=== PATIENT | male | born 1985 | race Caucasian/White ===

== ENCOUNTER 2017-05-23 18:42 | Emergency (ER) | payer BC ==
--- NOTE | 2017-05-23 18:55 | EDM.PDOC ---
ED HPI GENERAL MEDICAL PROBLEM - General Chief Complaint: General Stated Complaint: RIGHT EYELID BUSTED Time Seen by Provider: 05/23/17 18:52 Source of Information: Reports: Patient History Limitations: Reports: No Limitations - History of Present Illness INITIAL COMMENTS - FREE TEXT/NARRATIVE: History of present illness: [31-year-old male comes in status post fall from a 4 foot ladder. Patient was on the top of a ladder and fell off landing on his head splitting his eyebrow denies loss of consciousness or nausea vomiting.] Review of systems: As per history of present illness and below otherwise all systems reviewed and negative. Past medical history: As per history of present illness and as reviewed below otherwise noncontributory. Surgical history: As per history of present illness and as reviewed below otherwise noncontributory. Social history: No reported history of drug or alcohol abuse. Family history: As per history of present illness and as reviewed below otherwise noncontributory. Physical exam: HEENT: Right forehead with a 2 cm laceration right at the eyebrow, pupils reactive, negative for conjunctival pallor or scleral icterus, mucous membranes moist, throat clear, neck supple, nontender, trachea midline. Lungs: Clear to auscultation, breath sounds equal bilaterally, chest nontender. Heart: S1S2, regular, negative for clicks, rubs, or JVD. Abdomen: Soft, nondistended, nontender. Negative for masses or hepatosplenomegaly. Negative for costovertebral tenderness. Pelvis: Stable nontender. Genitourinary: Deferred. Rectal: Deferred. Extremities: Atraumatic, negative for cords or calf pain. Neurovascular unremarkable. Neuro: Awake, alert, oriented. Cranial nerves II through XII unremarkable. Cerebellum unremarkable. Motor and sensory unremarkable throughout. Exam nonfocal. Procedure note: Lidocaine with epi laceration to eyebrow approximately 2 cm long area cleaned well in the usual fashion sterile field established and 4. 0 Prolene 3 interrupted sutures applied to approximate edges. Wound edges approximated well bacitracin applied with a dressing over. Spoke with Dr. Justice at [facility] and she is aware of the patient's need for transfer also spoke to Dr. Li in neurology also [facility] and he accepted the patient Diagnostics: [CT of head without contrast] Therapeutics: [Lidocaine with epi] Impression: [Punctate bleed X2 (frontal and right occipital)] Plan: [Transfer to [facility]] Definitive disposition and diagnosis as appropriate pending reevaluation and review of above. Right Face Pain Score (Numeric/FACES): 1 - Related Data Allergies Allergy/AdvReac Type Severity Reaction Status Date / Time No Known Allergies Allergy Verified 05/23/17 18:53 Home Meds: Home Meds Albuterol [Ventolin HFA] 2 puff INH Q6H PRN 07/09/14 [History] Fluticasone/Salmeterol [Advair 250-50 Diskus] 2 puff IH DAILY 05/23/17 [History] Past Medical History - Past Surgical History HEENT Surgical History: Reports: Tonsillectomy Social & Family History - Family History Family Medical History: Noncontributory - Tobacco Use Smoking Status *Q: Former Smoker Used Tobacco, but Quit: Yes Month Tobacco Last Used: september - Alcohol Use Days Per Week of Alcohol Use: 0 - Recreational Drug Use Recreational Drug Use: No ED ROS GENERAL - Review of Systems Review Of Systems: See Below (See history of present illness) ED EXAM, GENERAL - Physical Exam Exam: See Below (See history of present illness) Course - Vital Signs Last Recorded V/S: Last Vital Signs Temp 36.9 C 05/23/17 18:50 Pulse 64 05/23/17 18:50 Resp 12 05/23/17 18:50 BP 147/85 H 05/23/17 18:50 Pulse Ox 96 05/23/17 18:50 - Orders/Labs/Meds Orders: Active Orders 24 hr Category Date Time Status Head wo Cont [CT] Stat Exams 05/23/17 18:52 Taken Meds: Medications Discontinued Medications Generic Name Dose Route Start Last Admin Trade Name Freq PRN Reason Stop Dose Admin Lidocaine/Epinephrine 20 ml 05/23/17 19:07 05/23/17 20:07 Xylocaine 1% With Epinephrine 1:100,000 INJECT 05/23/17 19:08 20 ml ONETIME ONE Administration Departure - Departure Time of Disposition: 20:47 Disposition: DC/Tfer to Acute Hospital 02 Condition: Good Clinical Impression: Brain bleed - Discharge Information Referrals: Salinas Boone MD [Primary Care Provider] - Forms: ED Department Discharge - My Orders Last 24 Hours: My Active Orders 05/23/17 18:52 Head wo Cont [CT] Stat - Assessment/Plan Last 24 Hours: My Active Orders 05/23/17 18:52 Head wo Cont [CT] Stat
[2017-05-23] MEDS ORDERED: Lidocaine 1% with EPINEPHrine 1:100,000 20 ML MDV INJECT ONE (19:07)
[2017-05-23 22:21] VITALS: BP 162/82
--- NOTE | 2017-05-25 15:12 | CT ---
EXAM DATE: 05/23/17 PATIENT'S AGE: 31 Patient: LISSET STONE Facility: [place], [place] Site . Site : 1985 Study: CT Head WO CONT [id number] 7:38:29 PM Ordering Physician: Doctor Rosario Final Report: INDICATION: Head injury from a fall off a ladder TECHNIQUE: CT head without i.v. contrast. COMPARISON: None FINDINGS: CSF spaces: Within normal limits for age. Brain parenchyma: There is a punctate density within the left frontal lobe sulcus on image 45 and right occipital lobe sulcus on image 49. No sign of mass , hemorrhage, or midline shift seen. Skull base and calvarium: The visualized paranasal sinuses are well aerated. The mastoid air cells are clear. The visualized orbits are grossly unremarkable. No skull fractures are seen. IMPRESSION: 1. There is a punctate density within the left frontal lobe sulcus on image 45 and right occipital lobe sulcus on image 49. Close clinical and imaging follow up is recommended to exclude subtle subarachnoid hemorrhage. The findings were discussed with nurse practitioner, Vladimir Amaya, at 8:00 p.m. Dictated by Christiano Ortega MD @ 05/23/2017 8:00:02 PM Dictated by: Christiano Ortega MD @ 05/23/2017 20:03:08 (Electronic Signature) Report Signed by Proxy. JUDY
== END 2017-05-23 21:27 ==
LOC: MW.ED 18:42
DX: S06.340A Traumatic hemorrhage of right cerebrum without loss of consciousness, initial encounter (principal); S06.350A Traumatic hemorrhage of left cerebrum without loss of consciousness, initial encounter; S01.111A Laceration without foreign body of right eyelid and periocular area, initial encounter; Z79.899 Other long term (current) drug therapy; Z98.890 Other specified postprocedural states; Z87.891 Personal history of nicotine dependence; W11.XXXA Fall on and from ladder, initial encounter
CPT/HCPCS: 12011; 70450; 70450-26; 99283; 99284-25

== ENCOUNTER 2019-05-12 19:42 | Observation (INO) | payer BC, OTHER ==
[2019-05-12] MEDS ORDERED: Sodium Chloride 0.9% 2.5 ML Syringe FLUSH PRN (19:51)
[2019-05-12] MEDS ORDERED: Sodium Chloride 0.9% 1,000 ML IV ONE (19:51)
[2019-05-12] MEDS ORDERED: Sodium Chloride 0.9% 10 ML Syringe FLUSH PRN (19:51)
[2019-05-12] MEDS ORDERED: Diltiazem 25 MG/5 ML SDV IVPUSH ONE (19:52)
[2019-05-12] MEDS ORDERED: Enoxaparin 100 MG/1 ML Syringe SUBCUT ONE (19:52)
--- NOTE | 2019-05-12 19:53 | EDM.PDOC ---
ED HPI GENERAL MEDICAL PROBLEM - General Chief Complaint: Cardiovascular Problem Stated Complaint: CHEST PAINS Time Seen by Provider: 05/12/19 19:53 Source of Information: Reports: Patient History Limitations: Reports: No Limitations - History of Present Illness INITIAL COMMENTS - FREE TEXT/NARRATIVE: HISTORY AND PHYSICAL: History of present illness: Patient is a 33-year-old male presents to the ED with concern of palpitations. He states he was playing softball and began feeling his heart racing about 30 minutes prior to arrival to the ED. He denies any chest pain, shortness of breath, dizziness, nausea, vomiting. He denies significant past medical history. Denies tobacco use. He states he drinks about 1-2 beers per day, had two playing softball today. Review of systems: As per history of present illness and below otherwise all systems reviewed and negative. Past medical history: As per history of present illness and as reviewed below otherwise noncontributory. Surgical history: As per history of present illness and as reviewed below otherwise noncontributory. Social history: No reported history of drug or alcohol abuse. Family history: As per history of present illness and as reviewed below otherwise noncontributory. Physical exam: General: Patient sitting comfortably in no acute distress and nontoxic appearing HEENT: Atraumatic, normocephalic, pupils reactive, negative for conjunctival pallor or scleral icterus, mucous membranes moist, throat clear, neck supple, nontender, trachea midline. No meningeal signs. Lungs: Clear to auscultation, breath sounds equal bilaterally, chest nontender. Heart: S1S2, irregular, tachycardic negative for clicks, rubs, or overt murmur. Abdomen: Soft, nondistended, nontender. Negative for masses or hepatosplenomegaly. Negative for costovertebral tenderness. No rigidity, rebound , guarding. Pelvis: Stable nontender. Genitourinary: Deferred. Rectal: Deferred. Extremities: Atraumatic, negative for cords or calf pain. Neurovascular unremarkable. Neuro: Awake, alert, oriented. Cranial nerves II through XII unremarkable. Cerebellum unremarkable. Motor and sensory unremarkable throughout. Exam nonfocal. Notes: EKG shows atrial fibrillation with RVR Diagnostics: CBC, CMP, troponin, PT/INR, EKG, chest x-ray Therapeutics: 1 L normal saline IV 25 mg Cardizem IV 80 mg Lovenox subcutaneous Prescriptions: Impression: New onset atrial fibrillation Plan: Discussed with Dr. Mccarthy, patient admitted to observation for new onset a-fib Definitive disposition and diagnosis as appropriate pending reevaluation and review of above. no pain Pain Score (Numeric/FACES): 0 - Related Data Allergies Allergy/AdvReac Type Severity Reaction Status Date / Time No Known Allergies Allergy Verified 05/12/19 22:44 Home Meds: Home Meds Albuterol [Ventolin HFA] 2 puff INH Q6H PRN 07/09/14 [History] Fluticasone/Salmeterol [Advair 250-50 Diskus] 2 puff IH DAILY 05/23/17 [History] Pantoprazole Sodium [Protonix] 40 mg PO DAILY 05/12/19 [History] Aspirin [Lo-Dose Aspirin EC] 81 mg PO DAILY 14 Days #14 tablet. 05/13/19 [Rx] Past Medical History Respiratory History: Reports: Asthma Gastrointestinal History: Reports: None Neurological History: Reports: None Psychiatric History: Reports: Anxiety Dermatologic History: Reports: None - Infectious Disease History Infectious Disease History: Reports: Chicken Pox - Past Surgical History HEENT Surgical History: Reports: Tonsillectomy Musculoskeletal Surgical History: Reports: Arthroscopic Knee, Shoulder Surgery, Other (See Below) Other Musculoskeletal Surgeries/Procedures:: Both on Right Social & Family History - Family History Family Medical History: Noncontributory - Tobacco Use Smoking Status *Q: Never Smoker - Caffeine Use Caffeine Use: Reports: Coffee, Energy Drinks, Soda - Recreational Drug Use Recreational Drug Use: No ED ROS GENERAL - Review of Systems Review Of Systems: ROS reveals no pertinent complaints other than HPI. ED EXAM, GENERAL - Physical Exam Exam: See Below (see dictation) Course - Vital Signs Last Recorded V/S: Last Vital Signs Temp 98.0 F 05/13/19 11:46 Pulse 60 05/13/19 11:46 Resp 22 H 05/13/19 11:46 BP 116/59 L 05/13/19 11:46 Pulse Ox 96 05/13/19 11:46 - Orders/Labs/Meds Labs: Laboratory Tests 05/12/19 05/12/19 05/12/19 Range/Units 19:20 19:50 19:50 WBC 10.43 (4.0-11.0) K/uL RBC 5.35 (4.50-5.90) M/uL Hgb 16.3 (13.0-17.0) g/dL Hct 46.8 (38.0-50.0) % MCV 87.5 (80.0-98.0) fL MCH 30.5 (27.0-32.0) pg MCHC 34.8 (31.0-37.0) g/dL RDW Std Deviation 39.2 (28.0-62.0) fl RDW Coeff of Anna 12 (11.0-15.0) % Plt Count 202 (150-400) K/uL MPV 9.80 (7.40-12.00) fL Neut % (Auto) 41.4 L (48.0-80.0) % Lymph % (Auto) 45.1 H (16.0-40.0) % Story % (Auto) 8.4 (0.0-15.0) % Eos % (Auto) 4.9 (0.0-7.0) % Baso % (Auto) 0.2 (0.0-1.5) % Neut # (Auto) 4.3 (1.4-5.7) K/uL Lymph # (Auto) 4.7 H (0.6-2.4) K/uL Story # (Auto) 0.9 H (0.0-0.8) K/uL Eos # (Auto) 0.5 (0.0-0.7) K/uL Baso # (Auto) 0.0 (0.0-0.1) K/uL Nucleated RBC % 0.0 /100WBC Nucleated RBCs # 0 K/uL INR 1.01 Sodium (136-148) mmol/L Potassium (3.5-5.1) mmol/L Chloride (98-107) mmol/L Carbon Dioxide (21.0-32.0) mmol/L BUN (7.0-18.0) mg/dL Creatinine (0.8-1.3) mg/dL Est Cr Clr Drug Dosing mL/min Estimated GFR (MDRD) ml/min Glucose (74-106) mg/dL Calcium (8.5-10.1) mg/dL Magnesium 2.2 (1.8-2.4) mg/dL Total Bilirubin (0.2-1.0) mg/dL AST (15-37) IU/L ALT (14-63) IU/L Alkaline Phosphatase (46-116) U/L Troponin I (0.000-0.056) ng/mL Total Protein (6.4-8.2) g/dL Albumin (3.4-5.0) g/dL Globulin (2.6-4.0) g/dL Albumin/Globulin Ratio (0.9-1.6) TSH 3rd Generation (0.36-3.74) uIU/mL 05/12/19 05/12/19 Range/Units 19:50 19:50 WBC (4.0-11.0) K/uL RBC (4.50-5.90) M/uL Hgb (13.0-17.0) g/dL Hct (38.0-50.0) % MCV (80.0-98.0) fL MCH (27.0-32.0) pg MCHC (31.0-37.0) g/dL RDW Std Deviation (28.0-62.0) fl RDW Coeff of Anna (11.0-15.0) % Plt Count (150-400) K/uL MPV (7.40-12.00) fL Neut % (Auto) (48.0-80.0) % Lymph % (Auto) (16.0-40.0) % Story % (Auto) (0.0-15.0) % Eos % (Auto) (0.0-7.0) % Baso % (Auto) (0.0-1.5) % Neut # (Auto) (1.4-5.7) K/uL Lymph # (Auto) (0.6-2.4) K/uL Story # (Auto) (0.0-0.8) K/uL Eos # (Auto) (0.0-0.7) K/uL Baso # (Auto) (0.0-0.1) K/uL Nucleated RBC % /100WBC Nucleated RBCs # K/uL INR Sodium 136 (136-148) mmol/L Potassium 2.8 L (3.5-5.1) mmol/L Chloride 101 (98-107) mmol/L Carbon Dioxide 25.5 (21.0-32.0) mmol/L BUN 11 (7.0-18.0) mg/dL Creatinine 1.2 (0.8-1.3) mg/dL Est Cr Clr Drug Dosing 87.56 mL/min Estimated GFR (MDRD) > 60.0 ml/min Glucose 102 (74-106) mg/dL Calcium 9.2 (8.5-10.1) mg/dL Magnesium (1.8-2.4) mg/dL Total Bilirubin 0.4 (0.2-1.0) mg/dL AST 16 (15-37) IU/L ALT 40 (14-63) IU/L Alkaline Phosphatase 90 (46-116) U/L Troponin I < 0.050 (0.000-0.056) ng/mL Total Protein 7.4 (6.4-8.2) g/dL Albumin 4.3 (3.4-5.0) g/dL Globulin 3.1 (2.6-4.0) g/dL Albumin/Globulin Ratio 1.4 (0.9-1.6) TSH 3rd Generation 2.86 (0.36-3.74) uIU/mL Meds: Medications Discontinued Medications Generic Name Dose Route Start Last Admin Trade Name Freq PRN Reason Stop Dose Admin Diltiazem HCl 25 mg 05/12/19 19:52 05/12/19 20:04 Diltiazem IVPUSH 05/12/19 19:53 25 mg ONETIME ONE Administration Enoxaparin Sodium 80 mg 05/12/19 19:52 05/12/19 20:04 Lovenox SUBCUT 05/12/19 19:53 80 mg ONETIME ONE Administration Sodium Chloride 1,000 mls @ 999 mls/hr 05/12/19 19:51 05/12/19 20:04 Normal Saline IV 05/12/19 20:51 999 mls/hr BOLUS ONE Administration Potassium Chloride/Sodium Chloride 1,000 mls @ 125 mls/hr 05/13/19 01:45 01:53 Normal Saline With 40 Meq Kcl IV 05/13/19 09:44 125 mls/hr ASDIRECTED ZINA Administration Metoprolol Tartrate 25 mg 05/12/19 20:30 05/13/19 08:21 Lopressor PO 25 mg Q12H ZINA Administration Potassium Chloride 40 meq 05/13/19 01:38 05/13/19 01:53 Klor-Con M20 PO 05/13/19 01:39 40 meq ONETIME ONE Administration Fluticasone/Salmeterol 2 puff 05/13/19 09:00 05/13/19 09:24 Advair Diskus 250-50 INH 1 inhalation DAILY ZINA Administration Sodium Chloride 10 ml 05/12/19 19:51 Saline Flush FLUSH ASDIRECTED PRN Keep Vein Open Sodium Chloride 2.5 ml 05/12/19 19:51 Saline Flush FLUSH ASDIRECTED PRN Keep Vein Open Departure - Departure Time of Disposition: 10:12 Disposition: Refer to Observation Clinical Impression: Atrial fibrillation
--- NOTE | 2019-05-12 20:20 | CR ---
INDICATION: Chest pain TECHNIQUE: Chest radiograph 1 view COMPARISON: None FINDINGS: Mediastinum: The mediastinum is normal in appearance. The heart silhouette is normal in size and morphology. Lung: Both lungs are unremarkable in appearance. No sign of pleural effusion seen. No pneumothorax is identified. IMPRESSION: 1. No acute cardiopulmonary disease is seen. Dictated by: Christiano Ortega MD @ 05/12/2019 20:18:50 (Electronically Signed)
--- NOTE | 2019-05-12 20:36 | PCM.HP.2 ---
H&P History of Present Illness - General Date of Service: 05/12/19 Admit Problem/Dx: Admission Diagnosis/Problem Admission Diagnosis/Problem Atrial fibrillation - History of Present Illness Initial Comments - Free Text/Narative: 33 yo male who presents to the ED with complaints of palpitations. He reports he was running bases at baseball and his heart started pounding and would not stop. He state it lasted for about 30 minutes. He reports he gets palpitions for a few seconds to minutes about once a day. He denies any history of heart disease. He does have a history of asthma and is on advair. He reports using his rescue inhaler 1-2 times a week. In the ED he was noted to be in atrial fibrillation with heart rate in the 150s bpm. He was give diltiazem with improvement of his heart rate into the 90s. no pain Pain Score (Numeric/FACES): 0 - Related Data Allergies/Adverse Reactions: Allergies Allergy/AdvReac Type Severity Reaction Status Date / Time No Known Allergies Allergy Verified 05/12/19 22:44 Home Medications: Home Meds Albuterol [Ventolin HFA] 2 puff INH Q6H PRN 07/09/14 [History] Fluticasone/Salmeterol [Advair 250-50 Diskus] 2 puff IH DAILY 05/23/17 [History] Pantoprazole Sodium [Protonix] 40 mg PO DAILY 05/12/19 [History] Aspirin [Lo-Dose Aspirin EC] 81 mg PO DAILY 14 Days #14 tablet. 05/13/19 [Rx] Past Medical History Respiratory History: Reports: Asthma Gastrointestinal History: Reports: None Neurological History: Reports: None Psychiatric History: Reports: Anxiety Dermatologic History: Reports: None - Infectious Disease History Infectious Disease History: Reports: Chicken Pox - Past Surgical History HEENT Surgical History: Reports: Tonsillectomy Musculoskeletal Surgical History: Reports: Arthroscopic Knee, Shoulder Surgery, Other (See Below) Other Musculoskeletal Surgeries/Procedures:: Both on Right Social & Family History - Family History Family Medical History: Noncontributory - Tobacco Use Smoking Status *Q: Never Smoker - Caffeine Use Caffeine Use: Reports: Coffee, Energy Drinks, Soda - Recreational Drug Use Recreational Drug Use: No H&P Review of Systems - Review of Systems: Review Of Systems: ROS reveals no pertinent complaints other than HPI. Exam - Exam Exam: See Below - Vital Signs Vital Signs: Last Vital Signs Temp 36.7 C 05/12/19 19:46 Pulse 84 05/12/19 20:11 Resp 16 05/12/19 20:11 BP 149/78 H 05/12/19 20:11 Pulse Ox 97 05/12/19 20:11 Weight: 83.915 kg - Exam General: Alert, Oriented HEENT: Mucosa Moist & [place] Lungs: Clear to Auscultation, Normal Respiratory Effort Cardiovascular: Regular Rate, Regular Rhythm GI/Abdominal Exam: Normal Bowel Sounds, Soft, Non-Tender Extremities: Non-Tender, No Pedal Edema - Patient Data Lab Results Last 24 hrs: Laboratory Results - last 24 hr 05/12/19 05/12/19 Range/Units 19:50 19:50 WBC 10.43 (4.0-11.0) K/uL RBC 5.35 (4.50-5.90) M/uL Hgb 16.3 (13.0-17.0) g/dL Hct 46.8 (38.0-50.0) % MCV 87.5 (80.0-98.0) fL MCH 30.5 (27.0-32.0) pg MCHC 34.8 (31.0-37.0) g/dL RDW Std Deviation 39.2 (28.0-62.0) fl RDW Coeff of Anna 12 (11.0-15.0) % Plt Count 202 (150-400) K/uL MPV 9.80 (7.40-12.00) fL Neut % (Auto) 41.4 L (48.0-80.0) % Lymph % (Auto) 45.1 H (16.0-40.0) % Nye % (Auto) 8.4 (0.0-15.0) % Eos % (Auto) 4.9 (0.0-7.0) % Baso % (Auto) 0.2 (0.0-1.5) % Neut # (Auto) 4.3 (1.4-5.7) K/uL Lymph # (Auto) 4.7 H (0.6-2.4) K/uL Nye # (Auto) 0.9 H (0.0-0.8) K/uL Eos # (Auto) 0.5 (0.0-0.7) K/uL Baso # (Auto) 0.0 (0.0-0.1) K/uL Nucleated RBC % 0.0 /100WBC Nucleated RBCs # 0 K/uL INR 1.01 Result Diagrams: 05/12/19 19:50 05/13/19 06:08 Problem List Initiated/Reviewed/Updated: Yes Orders Last 24hrs: Active Orders 24 hr Category Date Time Status Admission Status [Patient Status] [ADT] Stat ADT 05/12/19 20:07 Active Antiembolic Devices [RC] PER UNIT ROUTINE Care 05/12/19 20:31 Ordered Cardiac Monitoring [RC] . DIRECTED Care 05/12/19 19:51 Active EKG Documentation Completion [RC] STAT Care 05/12/19 19:51 Active Oxygen Therapy [RC] PRN Care 05/12/19 20:30 Ordered Up ad Rylee [RC] ASDIRECTED Care 05/12/19 20:30 Ordered VTE/DVT Education [RC] PER UNIT ROUTINE Care 05/12/19 20:30 Ordered Vital Signs [RC] Q4H Care 05/12/19 20:30 Ordered BASIC METABOLIC PANEL,BMP [CHEM] AM Lab 05/13/19 05:11 Ordered COMPREHENSIVE METABOLIC PN,CMP [CHEM] Stat Lab 05/12/19 19:50 Received TROPONIN I [CHEM] Stat Lab 05/12/19 19:50 Received TSH [CHEM] Stat Lab 05/12/19 19:50 Received Fluticasone/Salmeterol [Advair Diskus 250-50] Med 05/13/19 09:00 Ordered 2 puff INH DAILY Metoprolol Tartrate [Lopressor] Med 05/12/19 20:30 Ordered 25 mg PO Q12H Sodium Chloride 0.9% [Normal Saline] 1,000 ml Med 05/12/19 19:51 Active IV BOLUS Sodium Chloride 0.9% [Saline Flush] Med 05/12/19 19:51 Active 10 ml FLUSH ASDIRECTED PRN Sodium Chloride 0.9% [Saline Flush] Med 05/12/19 19:51 Active 2.5 ml FLUSH ASDIRECTED PRN Saline Lock Insert [OM.PC] Stat Oth 05/12/19 19:51 Ordered Sequential Compression Device [OM.PC] Per Unit Routine Oth 05/12/19 20:31 Ordered Resuscitation Status Routine Resus Stat 05/12/19 20:30 Ordered Medication Orders Sodium Chloride (Normal Saline) 1,000 mls @ 999 mls/hr IV BOLUS ONE Stop: 05/12/19 20:51 Last Admin: 05/12/19 20:04 Dose: 999 mls/hr Metoprolol Tartrate (Lopressor) 25 mg PO Q12H ZINA Fluticasone/Salmeterol (Advair Diskus 250-50) 2 puff INH DAILY ZINA Sodium Chloride (Saline Flush) 10 ml FLUSH ASDIRECTED PRN PRN Reason: Keep Vein Open Sodium Chloride (Saline Flush) 2.5 ml FLUSH ASDIRECTED PRN PRN Reason: Keep Vein Open Assessment/Plan Comment:: 33 yo male admitted for newly diagnosed atrial fibrillation with RVR. He is currently rate controlled after IV diltiazem. We will start oral metoprolol and continue to monitor on telemetry.
[2019-05-12 20:55] LABS: CHLORIDE,CL 101 mmol/L (98-107); SODIUM,NA 136 mmol/L (136-148)
[2019-05-12] MEDS: Metoprolol Tartrate 25 MG Tab PO SCH (21:34)
[2019-05-13] MEDS ORDERED: Potassium Chloride 20 MEQ Tab.ER PO ONE (01:38)
[2019-05-13] MEDS ORDERED: Sodium Chloride 0.9% with KCl 1,000 ML IV SCH (01:45)
[2019-05-13 06:38] LABS: CHLORIDE,CL 110 mmol/L (98-107); SODIUM,NA 146 mmol/L (136-148)
[2019-05-13] MEDS: Metoprolol Tartrate 25 MG Tab PO SCH (08:21)
[2019-05-13] MEDS ORDERED: Fluticasone/Salmeterol 250-50 MCG Inhalation Powder 14/Diskus INH SCH (09:00)
--- NOTE | 2019-05-13 11:13 | PCM.DCSUM1 ---
Discharge Summary - Discharge Data Discharge Date: 05/13/19 Discharge Disposition: Home, Self-Care 01 Condition: Stable - Patient Instructions Diet: Heart Healthy Diet (decrease caffeine consumption; no mountain dew ) Driving: May Drive Today Showering/Bathing: January Shower Notify Provider of: Fever, Increased Pain, Swelling and Redness, Drainage, Nausea and/or Vomiting Other/Special Instructions: contact [facility] if symptoms of chest pain , palpitations , or shortness of breath develop - Discharge Plan *PRESCRIPTION DRUG MONITORING PROGRAM REVIEWED*: No *COPY OF PRESCRIPTION DRUG MONITORING REPORT IN PATIENT ANNABELLE: No Prescriptions/Med Rec: Aspirin [Lo-Dose Aspirin EC] 81 mg PO DAILY 14 Days #14 tablet. Home Medications: Home Meds Albuterol [Ventolin HFA] 2 puff INH Q6H PRN 07/09/14 [History] Fluticasone/Salmeterol [Advair 250-50 Diskus] 2 puff IH DAILY 05/23/17 [History] Pantoprazole Sodium [Protonix] 40 mg PO DAILY 05/12/19 [History] Aspirin [Lo-Dose Aspirin EC] 81 mg PO DAILY 14 Days #14 tablet. 05/13/19 [Rx] Patient Handouts: Aspirin, ASA oral tablets, Atrial Fibrillation, [id number] Referrals: [facility] [Outside] [facility] [Outside] Brady Tang MD [Physician] - 05/26/19 6:30 am Zi Collins MD [Primary Care Provider] - 05/19/19 8:00 am - Discharge Summary/Plan Comment DC Time >30 min.: No - General Info Date of Service: 05/13/19 Subjective Update: Discharge summary Admission date May 12, 2019 Discharge date May 13, 2019 Admission diagnoses: A. fib with RVR Discharge diagnoses: A. fib with RVR: Resolved Consultations: None Procedures: None Hospital course: Patient is a 33-year-old male with a past medical history of asthma presenting to the emergency department with increasing heart rate with palpitations; says he was playing baseball and afterwards could not feel any resolution of his racing heart. States having multiple episodes with similar circumstances in the past; spontaneous resolution. this time could not get his heart rate under control proceeded to emergency department. Patient was playing baseball, had work in the a.m.; and drank a couple of beers in the evening. Otherwise states he has a past medical history of asthma and uses his controlled medication daily and albuterol once or twice a week. Diagnosed with A. fib and RVR; started on IV diltiazem; rate controlled. Switch over to PO metoprolol. Patient already controlled following morning; ultimately decided for no rate control medication; advised to follow cardiology and outpatient echocardiogram within a week. Advised to continue aspirin 81 mg daily and notify provider of any new symptoms or repeat up palpitations; advised to follow with PCP 1 week; Discharge condition: Stable Disposition: Home Discharge medications: Albuterol aspirin 81 mg daily Discharge instructions: Notify provider of new symptoms including fever, chills, bodyaches, chest pain, shortness of breath, palpitations, sweating and any other new symptoms against baseline. Advised to reduce physical exertion until cleared by cardiology. Follow-up: PCP 1 week. Cardiology 1 week. Repeat echo-scheduled - Patient Data Vitals - Most Recent: Last Vital Signs Temp 98.4 F 05/13/19 08:00 Pulse 67 05/13/19 08:21 Resp 16 05/13/19 08:00 BP 128/76 05/13/19 08:21 Pulse Ox 96 05/13/19 08:00 Weight - Most Recent: 189 lb 1.6 oz I&O - Last 24 hours: Intake & Output 05/12/19 05/13/19 05/13/19 22:59 06:59 14:59 Intake Total 1700 Output Total 1300 Balance 400 Lab Results - Last 24 hrs: Laboratory Results - last 24 hr 05/12/19 05/12/19 05/12/19 Range/Units 19:20 19:50 19:50 WBC 10.43 (4.0-11.0) K/uL RBC 5.35 (4.50-5.90) M/uL Hgb 16.3 (13.0-17.0) g/dL Hct 46.8 (38.0-50.0) % MCV 87.5 (80.0-98.0) fL MCH 30.5 (27.0-32.0) pg MCHC 34.8 (31.0-37.0) g/dL RDW Std Deviation 39.2 (28.0-62.0) fl RDW Coeff of Anna 12 (11.0-15.0) % Plt Count 202 (150-400) K/uL MPV 9.80 (7.40-12.00) fL Neut % (Auto) 41.4 L (48.0-80.0) % Lymph % (Auto) 45.1 H (16.0-40.0) % [place] % (Auto) 8.4 (0.0-15.0) % Eos % (Auto) 4.9 (0.0-7.0) % Baso % (Auto) 0.2 (0.0-1.5) % Neut # (Auto) 4.3 (1.4-5.7) K/uL Lymph # (Auto) 4.7 H (0.6-2.4) K/uL [place] # (Auto) 0.9 H (0.0-0.8) K/uL Eos # (Auto) 0.5 (0.0-0.7) K/uL Baso # (Auto) 0.0 (0.0-0.1) K/uL Nucleated RBC % 0.0 /100WBC Nucleated RBCs # 0 K/uL INR 1.01 Sodium (136-148) mmol/L Potassium (3.5-5.1) mmol/L Chloride (98-107) mmol/L Carbon Dioxide (21.0-32.0) mmol/L BUN (7.0-18.0) mg/dL Creatinine (0.8-1.3) mg/dL Est Cr Clr Drug Dosing mL/min Estimated GFR (MDRD) ml/min Glucose (74-106) mg/dL Calcium (8.5-10.1) mg/dL Magnesium 2.2 (1.8-2.4) mg/dL Total Bilirubin (0.2-1.0) mg/dL AST (15-37) IU/L ALT (14-63) IU/L Alkaline Phosphatase (46-116) U/L Troponin I (0.000-0.056) ng/mL Total Protein (6.4-8.2) g/dL Albumin (3.4-5.0) g/dL Globulin (2.6-4.0) g/dL Albumin/Globulin Ratio (0.9-1.6) TSH 3rd Generation (0.36-3.74) uIU/mL 05/12/19 05/12/19 05/13/19 Range/Units 19:50 19:50 06:08 WBC (4.0-11.0) K/uL RBC (4.50-5.90) M/uL Hgb (13.0-17.0) g/dL Hct (38.0-50.0) % MCV (80.0-98.0) fL MCH (27.0-32.0) pg MCHC (31.0-37.0) g/dL RDW Std Deviation (28.0-62.0) fl RDW Coeff of Anna (11.0-15.0) % Plt Count (150-400) K/uL MPV (7.40-12.00) fL Neut % (Auto) (48.0-80.0) % Lymph % (Auto) (16.0-40.0) % [place] % (Auto) (0.0-15.0) % Eos % (Auto) (0.0-7.0) % Baso % (Auto) (0.0-1.5) % Neut # (Auto) (1.4-5.7) K/uL Lymph # (Auto) (0.6-2.4) K/uL [place] # (Auto) (0.0-0.8) K/uL Eos # (Auto) (0.0-0.7) K/uL Baso # (Auto) (0.0-0.1) K/uL Nucleated RBC % /100WBC Nucleated RBCs # K/uL INR Sodium 136 146 (136-148) mmol/L Potassium 2.8 L 4.6 (3.5-5.1) mmol/L Chloride 101 110 H (98-107) mmol/L Carbon Dioxide 25.5 29.4 (21.0-32.0) mmol/L BUN 11 8 (7.0-18.0) mg/dL Creatinine 1.2 1.1 (0.8-1.3) mg/dL Est Cr Clr Drug Dosing 87.56 95.52 mL/min Estimated GFR (MDRD) > 60.0 > 60.0 ml/min Glucose 102 98 (74-106) mg/dL Calcium 9.2 8.7 (8.5-10.1) mg/dL Magnesium (1.8-2.4) mg/dL Total Bilirubin 0.4 (0.2-1.0) mg/dL AST 16 (15-37) IU/L ALT 40 (14-63) IU/L Alkaline Phosphatase 90 (46-116) U/L Troponin I < 0.050 (0.000-0.056) ng/mL Total Protein 7.4 (6.4-8.2) g/dL Albumin 4.3 (3.4-5.0) g/dL Globulin 3.1 (2.6-4.0) g/dL Albumin/Globulin Ratio 1.4 (0.9-1.6) TSH 3rd Generation 2.86 (0.36-3.74) uIU/mL Med Orders - Current: Current Medications Metoprolol Tartrate (Lopressor) 25 mg PO Q12H [facility] Last Admin: 05/13/19 08:21 Dose: 25 mg Fluticasone/Salmeterol (Advair Diskus 250-50) 2 puff INH DAILY [facility] Last Admin: 05/13/19 09:24 Dose: 1 inhalation Sodium Chloride (Saline Flush) 10 ml FLUSH ASDIRECTED PRN PRN Reason: Keep Vein Open Sodium Chloride (Saline Flush) 2.5 ml FLUSH ASDIRECTED PRN PRN Reason: Keep Vein Open Discontinued Medications Diltiazem HCl (Diltiazem) 25 mg IVPUSH ONETIME ONE Stop: 05/12/19 19:53 Last Admin: 05/12/19 20:04 Dose: 25 mg Enoxaparin Sodium (Lovenox) 80 mg SUBCUT ONETIME ONE Stop: 05/12/19 19:53 Last Admin: 05/12/19 20:04 Dose: 80 mg Sodium Chloride (Normal Saline) 1,000 mls @ 999 mls/hr IV BOLUS ONE Stop: 05/12/19 20:51 Last Admin: 05/12/19 20:04 Dose: 999 mls/hr Potassium Chloride/Sodium Chloride (Normal Saline With 40 Meq Kcl) 1,000 mls @ 125 mls/hr IV ASDIRECTED ZINA Stop: 05/13/19 09:44 Last Admin: 05/13/19 01:53 Dose: 125 mls/hr Potassium Chloride (Klor-Con M20) 40 meq PO ONETIME ONE Stop: 05/13/19 01:39 Last Admin: 05/13/19 01:53 Dose: 40 meq
[2019-05-13 11:47] VITALS: BP 116/59
== END 2019-05-13 12:05 | disposition home or self-care (01) ==
LOC: MW.ED 19:42 → MW.MS 20:07
PROVIDERS: ADMIT Internal Medicine; ATTEND Internal Medicine
DX: I48.91 Unspecified atrial fibrillation (principal); J45.909 Unspecified asthma, uncomplicated; Z79.51 Long term (current) use of inhaled steroids
CPT/HCPCS: 36415; 71045; 80048; 80053; 83735; 84443; 84484; 85025; 85610; 93005; 94664; 96361; 96372; 96374; 99285; A9270; J1650; J3480; J3490; J7040; 96365; 96366; 96375; G0378

== ENCOUNTER 2019-05-22 07:11 | Emergency (ER) | payer OTHER ==
[2019-05-22] MEDS ORDERED: Albuterol/Ipratropium 3.0-0.5 MG/3 ML Neb Soln NEB ONE (07:19)
[2019-05-22] MEDS ORDERED: predniSONE 20 MG Tab PO ONE (07:39)
--- NOTE | 2019-05-22 07:44 | EDM.PDOC ---
ED HPI GENERAL MEDICAL PROBLEM - General Chief Complaint: Respiratory Problem Stated Complaint: SOB Time Seen by Provider: 05/22/19 07:30 Source of Information: Reports: Patient History Limitations: Reports: No Limitations - History of Present Illness INITIAL COMMENTS - FREE TEXT/NARRATIVE: History of present illness: []Patient has had 2 days of shortness of breath and wheezing. He has a history of asthma and uses albuterol as well as Advair daily. Yesterday morning he awoke with a severe sore throat that "felt like strep" but his pain rapidly went away and he denies any fevers or chills. He has not been coughing or having any difficulty swallowing. Review of systems: As per history of present illness and below otherwise all systems reviewed and negative. Past medical history: As per history of present illness and as reviewed below otherwise noncontributory. Surgical history: As per history of present illness and as reviewed below otherwise noncontributory. Social history: No reported history of drug or alcohol abuse. Family history: As per history of present illness and as reviewed below otherwise noncontributory. Physical exam: General: Well developed, well nourished in NAD HEENT: Atraumatic, normocephalic, pupils reactive, negative for conjunctival pallor or scleral icterus, mucous membranes moist, throat clear, neck supple, nontender, trachea midline. Lungs: Clear to auscultation, breath sounds equal bilaterally, chest nontender. Heart: S1S2, regular, negative for clicks, rubs, or JVD. Abdomen: NABS, Soft, nondistended, nontender. Negative for masses or hepatosplenomegaly. Negative for costovertebral tenderness. Pelvis: Stable nontender. Genitourinary: Deferred. Rectal: Deferred. Extremities: Atraumatic, negative for cords or calf pain. Neurovascular unremarkable. Neuro: Awake, alert, oriented. Cranial nerves II through XII unremarkable. Cerebellum unremarkable. Motor and sensory unremarkable throughout. Exam nonfocal. Skin:warm and dry Diagnostics: EKG, Therapeutics: DuoNeb prednisone ED Course: Stable Impression: Mild asthma exacerbation Prescriptions: Prednisone Plan: Take meds as directed, follow up with your primary care physician, return to ER if symptoms worsen or change. Definitive disposition and diagnosis as appropriate pending reevaluation and review of above. - Related Data Allergies Allergy/AdvReac Type Severity Reaction Status Date / Time No Known Allergies Allergy Verified 05/22/19 07:14 Home Meds: Home Meds Albuterol [Ventolin HFA] 2 puff INH Q6H PRN 07/09/14 [History] Aspirin [Lo-Dose Aspirin EC] 81 mg PO DAILY 14 Days #14 tablet. 05/13/19 [Rx] predniSONE [Prednisone] 20 mg PO DAILY #5 tablet 05/22/19 [Rx] Past Medical History HEENT History: Reports: Impaired Vision, Other (See Below) Other HEENT History: wears contacts Cardiovascular History: Reports: Afib Respiratory History: Reports: Asthma Gastrointestinal History: Reports: None Neurological History: Reports: None Psychiatric History: Reports: Anxiety Dermatologic History: Reports: None - Infectious Disease History Infectious Disease History: Reports: Chicken Pox - Past Surgical History HEENT Surgical History: Reports: Tonsillectomy Musculoskeletal Surgical History: Reports: Arthroscopic Knee, Shoulder Surgery, Other (See Below) Other Musculoskeletal Surgeries/Procedures:: Both on Right Social & Family History - Family History Family Medical History: Noncontributory Cardiac: Reports: Hypertension Endocrine/Metabolic: Reports: Diabetes, Type I - Tobacco Use Smoking Status *Q: Never Smoker - Caffeine Use Caffeine Use: Reports: Coffee - Recreational Drug Use Recreational Drug Use: No ED ROS GENERAL - Review of Systems Review Of Systems: See Below ED EXAM, GENERAL - Physical Exam Exam: See Below Course - Vital Signs Last Recorded V/S: Last Vital Signs Temp 96.1 F 05/22/19 07:15 Pulse 92 05/22/19 07:15 Resp 24 H 05/22/19 07:15 BP 155/82 H 05/22/19 07:15 Pulse Ox 98 05/22/19 07:15 - Orders/Labs/Meds Orders: Active Orders 24 hr Category Date Time Status EKG 12 Lead [EKG Documentation Completion] [RC] STAT Care 05/22/19 07:36 Active RT Aerosol Therapy [RC] ASDIRECTED Care 05/22/19 07:19 Active Meds: Medications Discontinued Medications Generic Name Dose Route Start Last Admin Trade Name Freq PRN Reason Stop Dose Admin Albuterol/Ipratropium 3 ml 05/22/19 07:19 05/22/19 07:25 Duoneb 3.0-0.5 Mg/3 Ml NEB 09/08/19 07:20 3 ml ONETIME ONE Administration Prednisone 60 mg 05/22/19 07:39 Prednisone PO 05/22/19 07:40 ONETIME ONE Departure - Departure Time of Disposition: 07:43 Disposition: Home, Self-Care 01 Condition: Good Clinical Impression: Mild asthma exacerbation - Discharge Information *PRESCRIPTION DRUG MONITORING PROGRAM REVIEWED*: No *COPY OF PRESCRIPTION DRUG MONITORING REPORT IN PATIENT ANNABELLE: No Prescriptions: predniSONE [Prednisone] 20 mg PO DAILY #5 tablet Forms: ED Department Discharge Additional Instructions: The following information is given to patients seen in the emergency department who are being discharged to home. This information is to outline your options for follow-up care. We provide all patients seen in our emergency department with a follow-up referral. The need for follow-up, as well as the timing and circumstances, are variable depending upon the specifics of your emergency department visit. If you don't have a primary care physician on staff, we will provide you with a referral. We always advise you to contact your personal physician following an emergency department visit to inform them of the circumstance of the visit and for follow-up with them and/or the need for any referrals to a consulting specialist. The emergency department will also refer you to a specialist when appropriate. This referral assures that you have the opportunity for follow-up care with a specialist. All of these measure are taken in an effort to provide you with optimal care, which includes your follow-up. Under all circumstances we always encourage you to contact your private physician who remains a resource for coordinating your care. When calling for follow-up care, please make the office aware that this follow-up is from your recent emergency room visit. If for any reason you are refused follow-up, please contact the Emergency Department at and asked to speak to the emergency department charge nurse. Take meds as directed, follow up with your primary care physician, return to ER if symptoms worsen or change. Primary Care [address] [place] [id number] - My Orders Last 24 Hours: My Active Orders 05/22/19 07:19 RT Aerosol Therapy [RC] ASDIRECTED 05/22/19 07:36 EKG 12 Lead [EKG Documentation Completion] [RC] STAT - Assessment/Plan Last 24 Hours: My Active Orders 05/22/19 07:19 RT Aerosol Therapy [RC] ASDIRECTED 05/22/19 07:36 EKG 12 Lead [EKG Documentation Completion] [RC] STAT
[2019-05-22 07:50] VITALS: BP 130/72
== END 2019-05-22 07:56 | disposition home or self-care (01) ==
LOC: MW.ED 07:11
DX: J45.901 Unspecified asthma with (acute) exacerbation (principal); I48.91 Unspecified atrial fibrillation; Z79.82 Long term (current) use of aspirin; Z79.899 Other long term (current) drug therapy
CPT/HCPCS: 93005; 94640; 99284; A9270; J7620-GY

== ENCOUNTER 2020-11-13 08:32 | Emergency (ER) | payer BC ==
--- NOTE | 2020-11-13 09:05 | EDM.PDOC ---
ED HPI GENERAL MEDICAL PROBLEM - General Chief Complaint: Cardiovascular Problem Stated Complaint: JAW PAIN, FAST HEART BEAT Time Seen by Provider: 11/13/20 08:41 - History of Present Illness INITIAL COMMENTS - FREE TEXT/NARRATIVE: Patient is a 35-year-old male presenting with palpitations. Patient has a history of an episode of A. fib that occurred while he was playing softball. He subsequently followed up with a geometry teacher at [facility]. He did a 2- day Holter and then a month-long Holter. He had no arrhythmia episodes during that but did have some frequent symptomatic PACs and PVCs. That initial geometry teacher essentially released him saying he did not need to take any medications or do anything further because of his negative Holter. But he was offered a second opinion with the cloth cutter. He saw the nurse practitioner who works in the cloth cutter office. They discussed the symptomatic PACs and PVCs and he was placed on a once daily low-dose diltiazem which he started 5 days ago. Since that time he has been troubled by palpitations at night as he is trying to sleep after taking the diltiazem. He denies any separate chest pain he denies any lightheadedness dizziness syncope or near syncope he denies any shortness of breath. No lower extremity pain or swelling. The symptoms do not occur with exertion. 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 Since being on the diltiazem he feels like there might be one coming on but that it is then suppressed. He is a non-smoker he has no family history of cardiac disease. He has no other medical problems and takes no other medications. - Related Data Allergies Allergy/AdvReac Type Severity Reaction Status Date / Time No Known Allergies Allergy Verified 11/13/20 08:40 Home Meds: Home Meds Albuterol [Ventolin HFA] 2 puff INH Q6H PRN 07/09/14 [History] Diltiazem [Cardizem] 120 mg PO DAILY 11/13/20 [History] Past Medical History HEENT History: Reports: Impaired Vision, Other (See Below) Other HEENT History: wears contacts Cardiovascular History: Reports: Afib Respiratory History: Reports: Asthma Gastrointestinal History: Reports: None Neurological History: Reports: None Psychiatric History: Reports: Anxiety Dermatologic History: Reports: None - Infectious Disease History Infectious Disease History: Reports: Chicken Pox - Past Surgical History HEENT Surgical History: Reports: Tonsillectomy Musculoskeletal Surgical History: Reports: Arthroscopic Knee, Shoulder Surgery, Other (See Below) Other Musculoskeletal Surgeries/Procedures:: Both on Right Social & Family History - Family History Family Medical History: No Pertinent Family History Cardiac: Reports: Hypertension Endocrine/Metabolic: Reports: Diabetes, Type I - Tobacco Use Tobacco Use Status *Q: Never Tobacco User - Caffeine Use Caffeine Use: Reports: Coffee - Recreational Drug Use Recreational Drug Use: No ED ROS GENERAL - Review of Systems Review Of Systems: See Below Free Text/Narrative/Comment: General: No fever. Eyes: No vision problems. ENT: No sore throat. Neck: No neck stiffness. Respiratory: No shortness of breath. Cardiac: No chest pain. Gastrointestinal: No nausea, vomiting or abdominal pain. Musculoskeletal: No myalgias/arthralgias. Neurologic: No headache. ED EXAM, GENERAL - Physical Exam Exam: See Below Free Text/Narrative:: General Appearance: No acute distress, appears comfortable Skin: No rash HEENT: Normocephalic/atraumatic, sclera anicteric, mucous membranes moist Neck: Normal range of motion Chest and Lungs: Bilateral breath sounds, clear to auscultation Cardiovascular: Regular rate and rhythm, no murmur Abdomen: Soft, non-tender Back: Normal Musculoskeletal: No edema or tenderness Neurologic: Awake, alert, no obvious deficits, moving all extremities Psychiatric: Appropriate, cooperative #1 Interpretation EKG Date: 11/13/20 Time: 08:45 EKG Interpretation Comments: Normal sinus rhythm with a rate of 63 normal axis and intervals no acute ischemia QTC 395 Course - Vital Signs Last Recorded V/S: Last Vital Signs Temp 98.3 F 11/13/20 08:40 Pulse 87 11/13/20 08:40 Resp 16 11/13/20 08:40 BP 145/93 H 11/13/20 08:40 Pulse Ox 96 11/13/20 08:40 - Orders/Labs/Meds Orders: Active Orders 24 hr Category Date Time Status EKG 12 Lead [EKG Documentation Completion] [RC] STAT Care 11/13/20 08:45 Active Chest 2V [CR] Stat Exams 11/13/20 08:58 Taken Labs: Laboratory Tests 11/13/20 11/13/20 Range/Units 09:01 09:01 WBC 5.01 (4.0-11.0) K/uL RBC 5.27 (4.50-5.90) M/uL Hgb 15.7 (13.0-17.0) g/dL Hct 46.4 (38.0-50.0) % MCV 88.0 (80.0-98.0) fL MCH 29.8 (27.0-32.0) pg MCHC 33.8 (31.0-37.0) g/dL RDW Std Deviation 39.2 (28.0-62.0) fl RDW Coeff of Anna 12 (11.0-15.0) % Plt Count 197 (150-400) K/uL MPV 10.10 (7.40-12.00) fL Neut % (Auto) 46.9 L (48.0-80.0) % Lymph % (Auto) 39.7 (16.0-40.0) % [place] % (Auto) 9.8 (0.0-15.0) % Eos % (Auto) 3.4 (0.0-7.0) % Baso % (Auto) 0.2 (0.0-1.5) % Neut # (Auto) 2.4 (1.4-5.7) K/uL Lymph # (Auto) 2.0 (0.6-2.4) K/uL Dim[place] # (Auto) 0.5 (0.0-0.8) K/uL Eos # (Auto) 0.2 (0.0-0.7) K/uL Baso # (Auto) 0.0 (0.0-0.1) K/uL Nucleated RBC % 0.0 /100WBC Nucleated RBCs # 0 K/uL Sodium 139 (136-148) mmol/L Potassium 3.8 (3.5-5.1) mmol/L Chloride 104 (98-107) mmol/L Carbon Dioxide 28.6 (21.0-32.0) mmol/L BUN 11 (7.0-18.0) mg/dL Creatinine 1.1 (0.8-1.3) mg/dL Est Cr Clr Drug Dosing 93.73 mL/min Estimated GFR (MDRD) > 60.0 ml/min Glucose 99 (74-106) mg/dL Calcium 8.6 (8.5-10.1) mg/dL Magnesium 2.1 (1.8-2.4) mg/dL Troponin I < 0.050 (0.000-0.056) ng/mL Departure - Departure Time of Disposition: 09:44 Disposition: Home, Self-Care 01 Condition: Good Clinical Impression: Palpitations Instructions: Palpitations Referrals: Zi Collins MD [Primary Care Provider] - 1 Week Forms: ED Department Discharge Additional Instructions: I do think your palpitations are at least in part due to the diltiazem. Your labs today were good and your EKG showed a normal sinus rhythm without any significant abnormalities. As we discussed you can try taking the diltiazem in the morning instead of the evening. You may notice trouble with palpitations less if you are active. If you do this it is important you not take more than 1 dose of the medication within a 24-hour period. So if you would like to move your medication dose do not take the medication this evening and take it next tomorrow morning. I encourage you to pay attention to how you feel over the next several days. Please follow-up with your primary care doctor to discuss whether or not to remain on this medication or simply stop it if the side effects are proving to be more bothersome than the original symptoms. The following information is given to patients seen in the emergency department who are being discharged to home. This information is to outline your options for follow-up care. We provide all patients seen in our emergency department with a follow-up referral. The need for follow-up, as well as the timing and circumstances, are variable depending upon the specifics of your emergency department visit. If you don't have a primary care physician on staff, we will provide you with a referral. We always advise you to contact your personal physician following an emergency department visit to inform them of the circumstance of the visit and for follow-up with them and/or the need for any referrals to a consulting specialist. The emergency department will also refer you to a specialist when appropriate. This referral assures that you have the opportunity for follow-up care with a specialist. All of these measure are taken in an effort to provide you with optimal care, which includes your follow-up. Under all circumstances we always encourage you to contact your private physician who remains a resource for coordinating your care. When calling for follow-up care, please make the office aware that this follow-up is from your recent emergency room visit. If for any reason you are refused follow-up, please contact the [facility] Emergency Department at and asked to speak to the emergency department charge nurse. Sepsis Event Note (ED) - Evaluation Sepsis Screening Result: No Definite Risk - Focused Exam Vital Signs: Vital Signs Temp Pulse Resp BP Pulse Ox 11/13/20 08:40 98.3 F 87 16 145/93 H 96 - My Orders Last 24 Hours: My Active Orders 11/13/20 08:45 EKG 12 Lead [EKG Documentation Completion] [RC] STAT 11/13/20 08:58 Chest 2V [CR] Stat - Assessment/Plan Last 24 Hours: My Active Orders 11/13/20 08:45 EKG 12 Lead [EKG Documentation Completion] [RC] STAT 11/13/20 08:58 Chest 2V [CR] Stat Assessment:: 35-year-old male presenting with palpitations as described. His EKG is good. He is quite low risk for ACS single troponin will be sent but as long as this is negative I do not think additional evaluation is needed for that. He does not have chest pain only palpitations. He has no other risk factors for heart disease. Given the lack of tachycardia and lack of hypoxia and lack of chest pain or shortness of breath PE is felt very unlikely aortic dissection felt very unlikely nothing that would suggest pericarditis on his EKG. No findings that would suggest pneumonia on his exam. I do think his palpitations are likely due to the diltiazem. We discussed that in light of the negative Holter monitor the diltiazem is really about symptomatic management of his PACs and PVCs. And so it is a balancing game in terms of benefit and side effects. We discussed trying the diltiazem in the morning rather than at night as he may notice the palpitations less during activity. We discussed that he cannot take more than 1 dose in a 24-hour period so if he wanted to do that he should not take it tonight and then take it in the morning tomorrow. We also discussed following up with his primary care doctor. Given the palpitations electrolytes and chest x-ray pending as well as CBC to screen for anemia. If these are unremarkable patient will be safe for discharge with follow-up. 0944: Pt's labs are good, electrolytes and trop are normal. CXR without acute process per my preliminary interpretation. Pt's VS remain good. Pt discharged with f/u. Return precautions discussed and understood.
[2020-11-13 09:38] LABS: BLOOD UREA NITROGEN,BUN 11 mg/dL (7.0-18.0); CARBON DIOXIDE,CO2 28.6 mmol/L (21.0-32.0); CHLORIDE,CL 104 mmol/L (98-107); GLUCOSE RANDOM 99 mg/dL (74-106); POTASSIUM,K 3.8 mmol/L (3.5-5.1); SODIUM,NA 139 mmol/L (136-148)
--- NOTE | 2020-11-13 09:49 | CR ---
INDICATION: Palpitations. TECHNIQUE: Chest 2 views. COMPARISON: Chest radiograph 05/12/2019. FINDINGS: No focal consolidation, pleural effusion, or pneumothorax. Normal heart size and pulmonary vascularity. The bones are unremarkable. IMPRESSION: No acute cardiopulmonary findings. Dictated by Ceci Pineda MD @ Nov 13 2020 9:47AM Signed by Dr. Ceci Pineda @ Nov 13 2020 9:49AM
[2020-11-13 09:51] VITALS: BP 122/69; PULSE 57
== END 2020-11-13 09:52 | disposition home or self-care (01) ==
LOC: MW.ED 08:32
DX: R00.2 Palpitations (principal); J45.909 Unspecified asthma, uncomplicated; I48.91 Unspecified atrial fibrillation; Z79.899 Other long term (current) drug therapy
CPT/HCPCS: 36415; 71046; 71046-26; 80048; 83735; 84484; 85025; 93005; 93010; 99284; 99285-25

== ENCOUNTER 2021-03-13 19:24 | Emergency (ER) | payer BC ==
[2021-03-13] MEDS ORDERED: Aspirin 81 MG Tab.Chew PO ONE (19:59)
--- NOTE | 2021-03-13 20:02 | PCM.EKG ---
#1 Interpretation EKG Date: 03/13/21 Time: 19:38 Rhythm: NSR Rate (Beats/Min): 83 Korbel: Normal P-Wave: Present QRS: Normal ST-T: Normal (T wave inversion lead III, S1, mild q in III) QT: Normal Comparison: Change From Previous EKG EKG Interpretation Comments: Sinus Rhythm with [id number]
--- NOTE | 2021-03-13 20:30 | CR ---
INDICATION: Chest pain. TECHNIQUE: Chest 1 view. COMPARISON: Chest radiograph 11/13/2020. FINDINGS: No focal consolidation, pleural effusion, or pneumothorax. Normal heart size and pulmonary vascularity. The bones are unremarkable. IMPRESSION: No acute cardiopulmonary findings. Dictated by Ceci Pineda MD @ 03/13/2021 8:29:[address] Ceci Pineda @ Mar 13 2021 8:29PM
[2021-03-13 20:40] LABS: BLOOD UREA NITROGEN,BUN 15 mg/dL (7.0-18.0); CARBON DIOXIDE,CO2 28.2 mmol/L (21.0-32.0); CHLORIDE,CL 104 mmol/L (98-107); GLUCOSE RANDOM 99 mg/dL (74-106); POTASSIUM,K 3.5 mmol/L (3.5-5.1); SODIUM,NA 143 mmol/L (136-148)
--- NOTE | 2021-03-13 21:07 | EDM.PDOC ---
ED HPI GENERAL MEDICAL PROBLEM - General Chief Complaint: Chest Pain Stated Complaint: CHEST PAIN Time Seen by Provider: 03/13/21 19:32 - History of Present Illness INITIAL COMMENTS - FREE TEXT/NARRATIVE: CHIEF COMPLAINT(S): Chest pain HISTORY OF PRESENT ILLNESS: This is a 35-year-old man with a past medical history of paroxysmal atrial fibrillation, asthma who comes to the emergency department with a chief complaint of chest pain. The patient states that approximately 3 to 4 hours prior to arrival he started to experience chest pain on the left side of his chest which he describes as cramping/aching pain rated 2 out of 10. He states that the pain is worse with movement when he turns his neck when he bends over. He states that he has been evaluated in [place] for irregular heartbeats and was put on Cardizem. He has not yet taken that medication in a few days. He does have a history of anxiety. He states that he visited a chiropractor and had readjustment for this pain in his left upper chest. He states that it did help however it returned today. He has not yet tried any pain medication. He denies any shortness of breath, lower extreme edema, recent surgery, recent travel, prior history of DVT or PE. He denies any family history of early onset CAD or CHF. He denies any family history of sudden onset at young age. REVIEW OF SYSTEMS: Constitutional: Denies fever, chills. Eyes: Denies eye pain Ears, Nose, Mouth, & Throat: Denies earache Cardiovascular: Positive for left-sided chest pain. Denies lower extremity edema Respiratory: Denies shortness of breath Gastrointestinal: Denies Nausea, vomiting, diarrhea, hematochezia. Genitourinary: Denies hematuria Skin:Denies a rash MSK: Denies joint pain Neurological: Denies blurred vision, numbness, tingling, weakness Psychiatric: Denies depression PAST MEDICAL HISTORY: As per history of present illness and as reviewed below otherwise noncontributory. SURGICAL HISTORY: As per history of present illness and as reviewed below otherw ise noncontributory. SOCIAL HISTORY: As per history of present illness and as reviewed below otherwise noncontributory. FAMILY HISTORY: As per history of present illness and as reviewed below otherw ise noncontributory. EXAMINATION OF ORGAN SYSTEMS/BODY AREAS: Constitutional: Blood pressure is 139/70, heart rate 84, respiratory rate 19 with an oxygen saturation of 99% on room air General: Anxious appearing young man otherwise in no acute distress Psychiatric: Anxious appearing but is cooperative. Eyes: No scleral icterus or conjunctival erythema ENMT: Moist mucous membranes. No pharyngeal erythema Cardiovascular: Regular, rate, and rhythm. No gallops, murmurs, or rubs. Bilateral upper extremity pulses symmetric and intact. No peripheral edema. No JVD. Respiratory: Lungs clear to auscultation bilaterally. No wheezes, rales, or rhonchi. Gastrointestinal: Soft, non-tender, non-distended. Normoactive bowel sounds Genitourinary: No suprapubic tenderness Musculoskeletal: Normal range of motion. Skin: No lesions or abrasions. Neurological: Alert, GCS 15 MEDICAL DECISION MAKING AND COURSE IN THE ED WITH INTERPRETATION/REVIEW OF DIAGNOSTIC STUDIES: This is a 35-year-old man with a past medical history of paroxysmal atrial fibrillation and anxiety who comes to the emergency department with left-sided chest pain that is worse with movement which is likely musculoskeletal pain however given his chest pain we will undergo a cardiac work-up. EKG was obtained which was different from prior. This included T wave inversions and a Q wave in lead III. At this time I did discuss with patient that I would like to get CBC, D-dimer, BMP, troponin. We do only need 1 troponin given the duration of the patient's symptoms. We will provide the patient with 324 mg of aspirin. He is placed on cardiac monitoring and pulse oximetry. Cardiac monitoring did reveal sinus rhythm and pulse oximetry with good waveform was 96 to 98% on room air. Heart Score History: Slightly or Non-Suspicious (0) ECG: Non-specific repolarization (1) Age: <45 (0) Risk Factors: 1-2 (1) Initial Troponin: </= normal limit (0) Total Score: 2 -> Low Risk Laboratory: CBC is unremarkable. D-dimer is negative. BMP is unremarkable. Troponin is negative. Magnesium is normal. The radiological images were viewed by myself along with reading the report from the radiologist. Chest x-ray does not reveal any acute cardiopulmonary process. After imaging I did discuss results with the patient. I did discuss with him that I do believe his pain is likely musculoskeletal in nature given that the chiropractor was able to relieve his pain. Patient does have an appointment tomorrow with his critical care technician and I encouraged him to keep this appointment. He was amenable discharge at this time and had no further questions. He was given strict return precautions DISPOSITION: The patient was discharged home in stable condition. The patient will follow up with his critical care technician tomorrow CONDITION: Fair PROCEDURES: None FINAL IMPRESSION(S)/DIAGNOSES: 1. Subacute left-sided chest pain likely secondary to musculoskeletal strain Priyank Kang M.D. chest Pain Score (Numeric/FACES): 2 - Related Data Allergies Allergy/AdvReac Type Severity Reaction Status Date / Time No Known Allergies Allergy Verified 03/13/21 19:31 Home Meds: Home Meds Albuterol [Ventolin HFA] 2 puff INH Q6H PRN 07/09/14 [History] clonazePAM [Clonazepam] 0.5 mg PO ASDIRECTED 03/13/21 [History] Past Medical History HEENT History: Reports: Impaired Vision, Other (See Below) Other HEENT History: wears contacts Cardiovascular History: Reports: Afib Respiratory History: Reports: Asthma Gastrointestinal History: Reports: None Neurological History: Reports: None Psychiatric History: Reports: Anxiety Dermatologic History: Reports: None - Infectious Disease History Infectious Disease History: Reports: Chicken Pox - Past Surgical History HEENT Surgical History: Reports: Tonsillectomy Musculoskeletal Surgical History: Reports: Arthroscopic Knee, Shoulder Surgery, Other (See Below) Other Musculoskeletal Surgeries/Procedures:: Both on Right Social & Family History - Family History Family Medical History: No Pertinent Family History Cardiac: Reports: Hypertension Endocrine/Metabolic: Reports: Diabetes, Type I - Tobacco Use Tobacco Use Status *Q: Former Tobacco User Used Tobacco, but Quit: Yes Month/Year Tobacco Last Used: 2014 - Caffeine Use Caffeine Use: Reports: Coffee - Recreational Drug Use Recreational Drug Use: No ED ROS GENERAL - Review of Systems Review Of Systems: See Below ED EXAM, GENERAL - Physical Exam Exam: See Below Course - Vital Signs Last Recorded V/S: Last Vital Signs Temp Pulse 78 03/13/21 21:15 Resp 16 03/13/21 21:15 BP 123/65 03/13/21 21:15 Pulse Ox 95 03/13/21 21:15 - Orders/Labs/Meds Labs: Laboratory Tests 03/13/21 03/13/21 03/13/21 Range/Units 20:11 20:11 20:11 WBC 7.24 (4.0-11.0) K/uL RBC 4.99 (4.50-5.90) M/uL Hgb 15.0 (13.0-17.0) g/dL Hct 43.3 (38.0-50.0) % MCV 86.8 (80.0-98.0) fL MCH 30.1 (27.0-32.0) pg MCHC 34.6 (31.0-37.0) g/dL RDW Std Deviation 38.6 (28.0-62.0) fl RDW Coeff of Anna 12 (11.0-15.0) % Plt Count 220 (150-400) K/uL MPV 10.10 (7.40-12.00) fL Neut % (Auto) 42.9 L (48.0-80.0) % Lymph % (Auto) 43.0 H (16.0-40.0) % Real % (Auto) 8.3 (0.0-15.0) % Eos % (Auto) 5.7 (0.0-7.0) % Baso % (Auto) 0.1 (0.0-1.5) % Neut # (Auto) 3.1 (1.4-5.7) K/uL Lymph # (Auto) 3.1 H (0.6-2.4) K/uL Real # (Auto) 0.6 (0.0-0.8) K/uL Eos # (Auto) 0.4 (0.0-0.7) K/uL Baso # (Auto) 0.0 (0.0-0.1) K/uL Nucleated RBC % 0.0 /100WBC Nucleated RBCs # 0 K/uL D-Dimer, Quantitative < 0.19 (0.0-0.50) mg/L FEU Sodium 143 (136-148) mmol/L Potassium 3.5 (3.5-5.1) mmol/L Chloride 104 (98-107) mmol/L Carbon Dioxide 28.2 (21.0-32.0) mmol/L BUN 15 (7.0-18.0) mg/dL Creatinine 1.2 (0.8-1.3) mg/dL Est Cr Clr Drug Dosing 85.92 mL/min Estimated GFR (MDRD) > 60.0 ml/min Glucose 99 (74-106) mg/dL Calcium 9.0 (8.5-10.1) mg/dL Magnesium 2.4 (1.8-2.4) mg/dL Troponin I < 0.050 (0.000-0.056) ng/mL Meds: Medications Discontinued Medications Generic Name Dose Route Start Last Admin Trade Name Etienne PRN Reason Stop Dose Admin Aspirin 324 mg 03/13/21 19:59 03/13/21 20:03 Aspirin 81 Mg Tab.Chew PO 03/13/21 20:00 324 mg ONETIME ONE Administration Departure - Departure Time of Disposition: 21:07 Disposition: Home, Self-Care 01 Condition: Fair Clinical Impression: Atypical chest pain, Rib pain on left side - Discharge Information *PRESCRIPTION DRUG MONITORING PROGRAM REVIEWED*: No *COPY OF PRESCRIPTION DRUG MONITORING REPORT IN PATIENT ANNABELLE: No Instructions: Nonspecific Chest Pain, Adult, [id number], Chest Wall Pain Referrals: Zi Collins MD [Primary Care Provider] - Forms: ED Department Discharge Additional Instructions: You evaluate today on an emergent basis. All of your work-up was negative. At this time you have had multiple work-ups in the past including a recent stress test and you are put on medication for paroxysmal atrial fibrillation. Your EKG did not show any atrial fibrillation and your vitals were normal. We did consider a clot in your lung however the lab that we used given that your low risk was negative. Therefore I do not believe any work-up for this is indicated. I do believe given your work and the chiropractor that fixed you on Thursday you may have some rib inflammation located along the sternum. I recomme nd ibuprofen 400 mg every 6 hours for the next 2 days and then as needed after that for the pain. Please keep your appointment tomorrow with your critical care technician. In addition please follow-up with your primary care physician to discuss further treatment options for anxiety. You are welcome to return to the emergency department if you have any new or worsening symptoms. [facility] - Primary Care [address] [place] [id number] [address] [place] [address] The patient is informed of any results of their evaluation and diagnostic workup and all questions are answered. They are given discharge instructions and return precautions. The patient is stable for discharge. The patient states they understand and agree with the plan and that they will return if their symptoms get worse or if they have any new concerns. The following information is given to patients seen in the emergency department who are being discharged to home. This information is to outline your options for follow-up care. We provide all patients seen in our emergency department with a follow-up referral. The need for follow-up, as well as the timing and circumstances, are variable depending upon the specifics of your emergency department visit. If you don't have a primary care physician on staff, we will provide you with a referral. We always advise you to contact your personal physician following an emergency department visit to inform them of the circumstance of the visit and for follow-up with them and/or the need for any referrals to a consulting specialist. The emergency department will also refer you to a specialist when appropriate. This referral assures that you have the opportunity for follow-up care with a specialist. All of these measure are taken in an effort to provide you with optimal care, which includes your follow-up. Under all circumstances we always encourage you to contact your private physician who remains a resource for coordinating your care. When calling for follow-up care, please make the office aware that this follow-up is from your recent emergency room visit. If for any reason you are refused follow-up, please contact the [facility] Emergency Department at and asked to speak to the emergency department charge nurse. Sepsis Event Note (ED) - Evaluation Sepsis Screening Result: No Definite Risk
[2021-03-13 21:15] VITALS: BP 123/65; PULSE 78
== END 2021-03-13 21:15 | disposition home or self-care (01) ==
LOC: MW.ED 19:24
DX: R07.81 Pleurodynia (principal); R07.89 Other chest pain; Z87.891 Personal history of nicotine dependence
CPT/HCPCS: 36415; 71045; 80048; 83735; 84484; 85025; 85379; 93005; 99285; A9270; 93010; 99283

== ENCOUNTER 2025-04-20 04:49 | Emergency (ER) | payer BC ==
[2025-04-20 05:21] LABS: BASOPHILS ABSOLUTE AUTO 0.04 K/uL (0.00-0.20); BASOPHILS PERCENT AUTO 0.5 % (0.0-1.0); EOSINOPHILS ABSOLUTE AUTO 0.47 K/uL (0.00-0.45); EOSINOPHILS PERCENT AUTO 6.4 % (0.0-6.0); IMMATURE GRAN ABSOLUTE AUTO 0.02 K/uL (0.00-0.05); IMMATURE GRAN PERCENT AUTO 0.3 % (0.0-0.4); LYMPHOCYTES ABSOLUTE AUTO 2.14 K/uL (1.00-4.80); LYMPHOCYTES PERCENT AUTO 29.1 % (24.0-44.0); MEAN PLATELET VOLUME 9.4 fL (9.4-12.4); MONOCYTES ABSOLUTE AUTO 0.66 K/uL (0.00-0.80); MONOCYTES PERCENT AUTO 9.0 % (0.0-8.0); NEUTROPHILS ABSOLUTE AUTO 4.03 K/uL (1.80-7.70); NEUTROPHILS PERCENT AUTO 54.7 % (41.0-71.0); NRBC ABSOLUTE 0.00 K/uL (0.00-0.02); NRBC PERCENT 0.0 /100WBC (0.0-0.2); PLATELET COUNT,PLT 194 K/uL (150-400); RED BLOOD CELL COUNT 5.01 M/uL (4.52-5.90); WHITE BLOOD CELL COUNT,WBC 7.36 K/uL (3.9-11.3)
[2025-04-20 05:48] LABS: A/G RATIO 1.2 (0.9-1.6); ALANINE AMINOTRANSFERASE,ALT 39.0 IU/L (14-63); ASPARTATE AMNIOTRANSFERASE,AST 21.0 IU/L (15-37); BILIRUBIN TOTAL 0.5 mg/dL (0.2-1.0); BLOOD UREA NITROGEN,BUN 16.0 mg/dL (7.0-18.0); CARBON DIOXIDE,CO2 28.4 mmol/L (21.0-32.0); CHLORIDE,CL 104.0 mmol/L (98-107); CREATININE 1.3 mg/dL (0.8-1.3); EST CRCL DRUG DOSING (CG) 76.29 mL/min; GLUCOSE RANDOM 111.0 mg/dL (74-106); POTASSIUM,K 3.5 mmol/L (3.5-5.1); PRO B-TYPE NATRIUR PEPT,BNPPRO 14.0 pg/mL (0-125); PROTEIN TOTAL,TP 6.9 g/dL (6.4-8.2); SODIUM,NA 138.0 mmol/L (136-148)
[2025-04-20 05:53] LABS: ESTIMATED GFR 72.0 mL/min (>60)
[2025-04-20 06:03] VITALS: BP 122/73; PULSE 77
== END 2025-04-20 06:05 | disposition home or self-care (01) ==
LOC: MW.ED 04:49
DX: R00.2 Palpitations (principal); I48.0 Paroxysmal atrial fibrillation; Z79.899 Other long term (current) drug therapy
CPT/HCPCS: 36415; 71045; 71045-26; 80053; 83735; 83880; 84484; 85025; 93005; 99283; 99285